=== PATIENT | female | born 1955 | race Caucasian/White ===

== ENCOUNTER 2021-07-28 15:16 | Emergency (ER) | payer MEDICARE, BC ==
[2021-07-28] MEDS ORDERED: Sulfamethoxazole/Trimethoprim 800-160 MG Tab PO ONE (15:17)
[2021-07-28] MEDS ORDERED: Ondansetron 4 MG Tab.DIS PO ONE (15:17)
[2021-07-28] MEDS ORDERED: Sodium Chloride 0.9% 10 ML Syringe FLUSH PRN (15:41)
[2021-07-28 20:48] VITALS: BP 111/68; PULSE 103
== END 2021-07-28 18:15 | disposition home or self-care (01) ==
LOC: FB.ED 15:16
DX: N39.0 Urinary tract infection, site not specified (principal); Z79.899 Other long term (current) drug therapy
CPT/HCPCS: 36415; 80053; 81001; 82150; 83690; 84484; 85025; 87086; 99282; 99284; A9270-GY; Q0162

== ENCOUNTER → 2022-02-23 | Day surgery (SDC) | payer MEDICARE, BC ==
[~2022-02-23] MED LIST: Lactated Ringers 1,000 ML IV PRN; Midazolam 1 MG/ML 2 ML SDV IV ONE; acetaZOLAMIDE 500 MG Cap.ER PO ONE; fentaNYL 100 MCG/2 ML SDV IV ONE
== END ==
LOC: FB.SDS 06:00
PROVIDERS: ATTEND Ophthalmology
DX: H25.813 Combined forms of age-related cataract, bilateral (principal); H52.13 Myopia, bilateral; E78.5 Hyperlipidemia, unspecified; I10 Essential (primary) hypertension; E66.01 Morbid (severe) obesity due to excess calories; Z90.49 Acquired absence of other specified parts of digestive tract; Z98.890 Other specified postprocedural states; Z79.899 Other long term (current) drug therapy; Z79.82 Long term (current) use of aspirin; Z68.41 Body mass index [BMI] 40.0-44.9, adult
CPT/HCPCS: 00142; 66984; A9270; J2250; J3010; J7120

== ENCOUNTER 2022-03-09 08:50 | Day surgery (SDC) | payer MEDICARE, BC ==
[2022-03-09] MEDS ORDERED: Sodium Chloride 0.9% 10 ML Syringe FLUSH PRN (09:00)
[2022-03-09] MEDS ORDERED: Lactated Ringers 1,000 ML IV PRN (09:00)
[2022-03-09] MEDS ORDERED: Midazolam 1 MG/ML 2 ML SDV IVPUSH ONE (10:45)
[2022-03-09] MEDS ORDERED: fentaNYL 100 MCG/2 ML SDV IVPUSH ONE (10:45)
[2022-03-09] MEDS ORDERED: acetaZOLAMIDE 500 MG Cap.ER PO ONE (11:00)
[2022-03-09 11:25] VITALS: BP 130/63; PULSE 62
== END 2022-03-09 12:00 | disposition home or self-care (01) ==
LOC: FB.SDS 08:50
PROVIDERS: ATTEND Ophthalmology
DX: H25.813 Combined forms of age-related cataract, bilateral (principal); H52.13 Myopia, bilateral; I10 Essential (primary) hypertension; E78.00 Pure hypercholesterolemia, unspecified; Z79.899 Other long term (current) drug therapy
CPT/HCPCS: 00142-QZ; A9270-GY; J2250; J3010; J3490; J7120; V2632